=== PATIENT | female | born 1955 | race Two or more races ===

== ENCOUNTER → 2022-05-11 | Outpatient (CLI) | payer OTHER ==
[2022-05-11 11:55] LABS: Basophils # (auto) 0 10 ^3/uL (0-0.2); Basophils % (auto) 0.6 % (0.0-2.0); Eosinophils # (auto) 0.3 10 ^3/uL (0-0.8); Eosinophils % (auto) 3.3 % (0.0-7.0); Hematocrit 42.4 % (36.0-46.0); Hemoglobin 14.4 g/dL (12.2-16.2); Lymphocytes # (auto) 2.4 10 ^3/uL (0.4-5.4); Lymphocytes % (auto) 31.6 % (10.0-50.0); Mean Corpuscular Hemoglobin 31.8 pg (28.0-32.0); Mean Corpuscular Volume 93.5 fL (80.0-100.0); Monocytes # (auto) 0.6 10 ^3/uL (0-1.3); Neutrophils # (auto) 4.4 10 ^3/uL (1.6-8.6); Neutrophils % (auto) 56.5 % (37.0-80.0); Red Blood Cells 4.54 10^6/uL (4.0-5.20); White Blood Cell 7.7 10^3/uL (4.4-10.8)
[2022-05-11 12:44] LABS: Albumin 3.8 g/dL (3.4-5.0); Calcium 11.1 mg/dL (8.5-10.1); Potassium 3.8 mmol/L (3.5-5.1)
[2022-05-11 12:51] LABS: BUN/Creatinine Ratio 27.5 (10.0-20.0); Bilirubin, Total 0.8 mg/dL (0.2-1.0); Total Protein 7.5 g/dL (6.4-8.2)
[2022-05-11 12:52] LABS: Urine Bacteria NONE SEEN /hpf (None Seen); Urine Blood Negative /uL (Negative); Urine Specific Gravity 1.011 (1.001-1.035); Urine WBC <1 /hpf (0 - 5)
== END | disposition home or self-care (01) ==
LOC: LAB 11:38
PROVIDERS: ATTEND Internal Medicine
DX: Z12.11 Encounter for screening for malignant neoplasm of colon (principal); E78.00 Pure hypercholesterolemia, unspecified; R68.89 Other general symptoms and signs
CPT/HCPCS: 36415; 80053; 80061; 81001; 85025

== ENCOUNTER → 2022-06-05 | Outpatient (CLI) | payer OTHER ==
[2022-06-05 10:59] LABS: Basophils # (auto) 0 10 ^3/uL (0-0.2); Basophils % (auto) 0.4 % (0.0-2.0); Eosinophils # (auto) 0.3 10 ^3/uL (0-0.8); Eosinophils % (auto) 3.2 % (0.0-7.0); Hematocrit 44.1 % (36.0-46.0); Hemoglobin 14.9 g/dL (12.2-16.2); Lymphocytes # (auto) 2.2 10 ^3/uL (0.4-5.4); Lymphocytes % (auto) 27.3 % (10.0-50.0); Mean Corpuscular Hemoglobin 31.8 pg (28.0-32.0); Mean Corpuscular Hgb Conc. 33.7 g/dL (32.0-36.0); Mean Corpuscular Volume 94.2 fL (80.0-100.0); Monocytes # (auto) 0.7 10 ^3/uL (0-1.3); Monocytes % (auto) 8.2 % (0.0-12.0); Neutrophils # (auto) 4.9 10 ^3/uL (1.6-8.6); Neutrophils % (auto) 60.9 % (37.0-80.0); Nucleated Red Blood Cells % 0.1 %; Red Blood Cells 4.69 10^6/uL (4.0-5.20); Red Cell Distribution Width 13.4 % (11.8-14.3); White Blood Cell 8.1 10^3/uL (4.4-10.8)
[2022-06-05 11:36] LABS: Potassium 3.7 mmol/L (3.5-5.1)
[2022-06-05 11:50] LABS: Albumin 3.8 g/dL (3.4-5.0); BUN/Creatinine Ratio 23.1 (10.0-20.0); Bilirubin, Total 0.6 mg/dL (0.2-1.0); CRP High Sensitivity 0.07 mg/dL (< 0.3); Calcium 11.6 mg/dL (8.5-10.1); Total Protein 7.6 g/dL (6.4-8.2)
== END | disposition home or self-care (01) ==
LOC: LAB 09:59
PROVIDERS: ATTEND Internal Medicine
DX: L40.52 Psoriatic arthritis mutilans (principal); E78.00 Pure hypercholesterolemia, unspecified; R68.89 Other general symptoms and signs
CPT/HCPCS: 36415; 80053; 80061; 85025; 85652; 86141; 86200; 86431; 86812

== ENCOUNTER → 2023-04-08 | Outpatient (CLI) | payer OTHER ==
[2023-04-08 11:38] LABS: Basophils # (auto) 0 10 ^3/uL (0-0.2); Basophils % (auto) 0.6 % (0.0-2.0); Eosinophils # (auto) 0.2 10 ^3/uL (0-0.8); Eosinophils % (auto) 3.4 % (0.0-7.0); Hematocrit 40.9 % (36.0-46.0); Hemoglobin 13.9 g/dL (12.2-16.2); Lymphocytes # (auto) 1.9 10 ^3/uL (0.4-5.4); Lymphocytes % (auto) 26.7 % (10.0-50.0); Mean Corpuscular Hemoglobin 32.4 pg (28.0-32.0); Mean Corpuscular Volume 95.5 fL (80.0-100.0); Monocytes # (auto) 0.6 10 ^3/uL (0-1.3); Monocytes % (auto) 8.3 % (0.0-12.0); Neutrophils # (auto) 4.3 10 ^3/uL (1.6-8.6); Red Blood Cells 4.28 10^6/uL (4.0-5.20); Red Cell Distribution Width 12.7 % (11.8-14.3); White Blood Cell 7.1 10^3/uL (4.4-10.8)
[2023-04-08 12:27] LABS: Alanine Aminotransferase 18 U/L (7-40); Albumin 4.5 g/dL (3.2-4.8); Alkaline Phosphatase 73 U/L (46-116); Anion Gap 5 (5-15); Aspartate Aminotransferase 16 U/L (13-40); BUN/Creatinine Ratio 18.9 (10.0-20.0); Blood Urea Nitrogen 17 mg/dL (9-23); Calcium 11.5 mg/dL (8.5-10.1); Carbon Dioxide 31 mmol/L (20-30); Chloride 107 mmol/L (98-107); Cholesterol 185 mg/dL (< 200); Glucose 81 mg/dL (74-106); HDL Cholesterol 67 mg/dL (40-59); Potassium 3.7 mmol/L (3.5-5.1); Sodium 143 mmol/L (136-145); Triglycerides 96 mg/dL (< 150)
[2023-04-08 12:28] LABS: Bilirubin, Total 0.9 mg/dL (0.2-1.0); Total Protein 6.7 g/dL (5.7-8.2)
[2023-04-08 12:33] LABS: LDL Cholesterol 100 mg/dL (< 100)
== END | disposition home or self-care (01) ==
LOC: LAB 11:16
PROVIDERS: ATTEND Internal Medicine
DX: E78.00 Pure hypercholesterolemia, unspecified (principal); R68.89 Other general symptoms and signs
CPT/HCPCS: 36415; 80053; 80061; 85025

== ENCOUNTER 2024-06-30 02:10 | Emergency (ER) | payer OTHER ==
[~2024-06-30] VITALS: Ht 152.4 cm; Wt 75.0 kg
[2024-06-30 04:06] LABS: Basophils # (auto) 0 10 ^3/uL (0-0.2); Basophils % (auto) 0.3 % (0.0-2.0); Eosinophils # (auto) 0.1 10 ^3/uL (0-0.8); Eosinophils % (auto) 0.7 % (0.0-7.0); Hematocrit 42.3 % (36.0-46.0); Hemoglobin 14.5 g/dL (12.2-16.2); Lymphocytes # (auto) 1.3 10 ^3/uL (0.4-5.4); Lymphocytes % (auto) 13.2 % (10.0-50.0); Mean Corpuscular Hemoglobin 32.6 pg (28.0-32.0); Mean Corpuscular Hgb Conc. 34.3 g/dL (32.0-36.0); Monocytes # (auto) 0.6 10 ^3/uL (0-1.3); Monocytes % (auto) 5.9 % (0.0-12.0); Neutrophils # (auto) 7.9 10 ^3/uL (1.6-8.6); Neutrophils % (auto) 79.9 % (37.0-80.0); Platelet Count (auto) 169 10^3/uL (140-450); Red Blood Cells 4.46 10^6/uL (4.0-5.20); Red Cell Distribution Width 13.4 % (11.8-14.3); White Blood Cell 9.8 10^3/uL (4.4-10.8)
[2024-06-30 04:17] LABS: Alanine Aminotransferase 18 U/L (7-40); Alkaline Phosphatase 110 U/L (46-116); Carbon Dioxide 26 mmol/L (20-31); Chloride 102 mmol/L (98-107)
[2024-06-30 04:18] LABS: Albumin 4.8 g/dL (3.2-4.8); Anion Gap 12 (5-15); Aspartate Aminotransferase 15 U/L (13-40); BUN/Creatinine Ratio 18.2 (10.0-20.0); Bilirubin, Total 0.6 mg/dL (0.2-1.0); Blood Urea Nitrogen 18 mg/dL (9-23); Calcium 11.2 mg/dL (8.7-10.4); Glucose 186 mg/dL (74-106); Potassium 3.1 mmol/L (3.5-5.1); Sodium 140 mmol/L (136-145); Total Protein 7.4 g/dL (5.7-8.2)
[2024-06-30 04:45] VITALS: PULSE 98; RESP 16; O2SAT 95
[2024-06-30] MEDS: SODIUM CHLORIDE 0.9% 1,000 ML IV ONE (05:09)
[2024-06-30] MEDS: ONDANSETRON HCL 4 MG/2 ML VIAL IV ONE (05:09)
[2024-06-30] MEDS: MECLIZINE HCL 25 MG TAB PO ONE (05:09)
--- NOTE | 2024-06-30 06:51 | ED.PDOC ---
HPI (NEURO) HPI Comments 69 y/o F, BIBA, with PMHx of HTN presents to the ED for CC of dizziness. EMS reports patient is coming from home where she complains of dizziness with an associated headache since, last night (06/29/24). Patient states, that symptoms of dizziness prompted her to check her blood pressure; hypertensive blood pressure reading at 160/100mmHg. Patient endorses, doubling up on her Amlodipine medication in hope to subside symptoms with no relief. Patient denies nausea, vomiting, blurred vision, or uncoordination. No other symptoms or modifying factors present at this time. Chief Complaint: Dizziness Time Seen by MD: 06:15 Reviewed Notes: Nurses Notes, Clay Washer Notes, Medications, Allergies Information Source: Patient Mode of Arrival: EMS Severity: Moderate Dizziness/Weakness Severity: Does not affect activitie Headache Severity: Moderate Timing: Hours Duration: Since onset Prehospital treatment: None Headache Location: Generalized Onset: With light exertion Circumstances: Spontaneous During: Awake After: Headache History of: None Associated Signs and Symptoms: Headache Past Medical History PAST MEDICAL HISTORY: HTN Past Medical History (Other): osteoporosis Surgical History: Unknown [employer] History: Unknown Family History Family History: Unknown Social History Smoker: Non-Smoker Alcohol: Denies ETOH Use Drugs: Denies Drug Use Lives In: Home Constitutional: denies: chills, diaphoresis, fatigue, fever, malaise, sweats, weakness, others EENTM: denies: blurred vision, double vision, ear bleeding, ear discharge, ear drainage, ear pain, ear ringing, eye pain, eye redness, hearing loss, mouth pain, mouth swelling, nasal discharge, nose bleeding, nose congestion, nose pain, photophobia, tearing, throat pain, throat swelling, voice changes, others Respiratory: denies: cough, hemoptysis, orthopnea, SOB at rest, shortness of breath, SOB with excertion, stridor, wheezing, others Cardiovascular: denies: chest pain, dizzy spells, diaphoresis, Dyspnea on exertion, edema, irregular heart beat, left arm pain, lightheadedness, p alpitations, PND, syncope, others Gastrointestinal: denies: abdomen distended, abdominal pain, blood streaked bowels, constipated, diarrhea, dysphagia, difficulty swallowing, hematemesis, melena, nausea, poor appetite, poor fluid intake, rectal bleeding, rectal pain, vomiting, others Genitourinary: denies: abnormal vagina bleeding, burning, dyspareunia, dysuria, flank pain, frequency, hematuria, incontinence, pain, , vagina discharge, urgency, others Neurological: reports: dizziness, headache; denies: fainting, left sided numbness, left sided weakness, numbness, paresthesia, pre-existing deficit, right sided numbness, right sided weakness, seizure, speech problems, tingling, tremors, weakness, others Musculoskeletal: denies: back pain, gout, joint pain, joint swelling, muscle pain, muscle stiffness, neck pain, others Integumetry: denies: bruises, change in color, change in hair/nails, dryness, laceration, lesions, lumps, rash, wounds, others Allergic/Immunocompromised: denies: Difficulty Healing, Frequent Infections, Hives, Itching, others Hematologic/Lymphatic: denies: anemia, blood clots, easy bleeding, easy bruising, swollen glands, others Endocrine: denies: excessive hunger, excessive sweating, excessive thirst, excessive urination, flushing, intolerance to cold, intolerance to heat, u nexplained weight gain, unexplained weight loss, others Psychiatric: denies: anxiety, bipolar disorder, depression, hopeless, panic disorder, schizophrenia, sleepless, suicidal, others All Other Systems: Reviewed and Negative Physical Exam General Appearance: Moderate Distress HEENT: Normal ENT Inspection, Pharynx Normal, TMs Normal Neck: Full Range of Motion, Non-Tender, Normal, Normal Inspection Respiratory: Chest Non-Tender, Lungs Clear, No Accessory Muscle Use, No Respiratory Distress, Normal Breath Sounds Cardiovascular: No Edema, No JVD, No Murmur, No Gallop, Normal Peripheral Pulses, Regular Rate/Rhythm Breast Exam: Deferred Gastrointestinal: No Organomegaly, Non Tender, No Pulsatile Mass, Normal Bowel Sounds, Soft Genitalia: Deferred Pelvic: Deferred Rectal: Deferred Extremities: No calf tenderness, Normal capillary refill, Normal inspection, Normal range of motion, Non-tender, No pedal edema Musculoskeletal : Apperance: Normal Neurologic: Alert, associate web developer II-XII nml as Tested, No Motor Deficits, Normal Affect, Normal Mood, No Sensory Deficits Cerebellar Function: Normal Reflexes: Normal Skin: Dry, Normal Color, Warm Peripheral Pulses: 3+ Radial (R), 3+ Radial (L) Lymphatic: No Adenopathy EKG EKG : Cardiac Rhythm: NSR Was a procedure done? Was a procedure done?: No Differential Diagnosis (SZ) Seizure: Psychogenic Seizure, Closed Head Injury, CVA/TIA General Weakness: Dehydration, Electrolyte imbalance Headache: Cluster, Migraine, Sinusitis X-Ray, Labs, Meds, VS Vital Signs Date Time Temp Pulse Resp B/P (MAP) Pulse Ox O2 Delivery O2 Flow Rate FiO2 06/30/24 07:36 97.9 90 16 140/71 (94) 94 97.9 06/30/24 04:45 98 16 95 Room Air* 0 21 06/30/24 04:45 98.8 98 16 127/54 (78) 95 98.8 06/30/24 02:10 97.9 76 16 146/78 (100) 98 97.9 Lab Test 06/30/24 04:49 06/30/24 03:43 Range/Units Troponin I High Sensitivity 6 6 </=34 ng/L White Blood Count 9.8 4.4-10.8 10^3/uL Red Blood Count 4.46 4.0-5.20 10^6/uL Hemoglobin 14.5 12.2-16.2 g/dL Hematocrit 42.3 36.0-46.0 % Mean Corpuscular Volume 95.0 80.0-100.0 fL Mean Corpuscular Hemoglobin 32.6 H 28.0-32.0 pg Mean Corpuscular Hemoglobin Concent 34.3 32.0-36.0 g/dL Red Cell Distribution Width 13.4 11.8-14.3 % Platelet Count 169 140-450 10^3/uL Mean Platelet Volume 10.2 6.9-10.8 fL Neutrophils (%) (Auto) 79.9 37.0-80.0 % Lymphocytes (%) (Auto) 13.2 10.0-50.0 % Monocytes (%) (Auto) 5.9 0.0-12.0 % Eosinophils (%) (Auto) 0.7 0.0-7.0 % Basophils (%) (Auto) 0.3 0.0-2.0 % Neutrophils # (Auto) 7.9 1.6-8.6 10 ^3/uL Lymphocytes # (Auto) 1.3 0.4-5.4 10 ^3/uL Monocytes # (Auto) 0.6 0-1.3 10 ^3/uL Eosinophils # (Auto) 0.1 0-0.8 10 ^3/uL Basophils # (Auto) 0 0-0.2 10 ^3/uL Nucleated Red Blood Cells 0.0 % Sodium Level 140 136-145 mmol/L Potassium Level 3.1 L 3.5-5.1 mmol/L Chloride Level 102 98-107 mmol/L Carbon Dioxide Level 26 20-31 mmol/L Anion Gap 12 5-15 Blood Urea Nitrogen 18 9-23 mg/dL Creatinine 0.99 0.550-1.02 mg/dL Glomerular Filtration Rate Calc 61 >90 mL/min BUN/Creatinine Ratio 18.2 10.0-20.0 Serum Glucose 186 H 74-106 mg/dL Calcium Level 11.2 H 8.7-10.4 mg/dL Total Bilirubin 0.6 0.2-1.0 mg/dL Aspartate Amino Transferase (AST) 15 13-40 U/L Alanine Aminotransferase (ALT) 18 7-40 U/L Alkaline Phosphatase 110 46-116 U/L B-Type Natriuretic Peptide 55.57 0-100 pg/mL Total Protein 7.4 5.7-8.2 g/dL Albumin 4.8 3.2-4.8 g/dL Current Medications Medications (Trade) Dose Ordered Sig/Amy Route Start Time Stop Time Status Last Admin Sodium Chloride 1,000 ml @ 1,000 mls/hr Q1H ONCE IV 06/30/24 03:30 06/30/24 04:29 DC 06/30/24 05:09 Meclizine HCl (Antivert Tablet) 25 mg ONCE ONCE PO 06/30/24 03:30 06/30/24 03:31 DC 06/30/24 05:09 Ondansetron HCl (Zofran) 4 mg ONCE ONCE IV 06/30/24 05:00 06/30/24 05:01 DC 06/30/24 05:[address] [address] Ph: [phone] DIAGNOSTIC IMAGING Diagnostic Imaging Report : [id number] Signed PATIENT: BRENDAN NETTLES CACCT: [id number] UNIT: [id number] : 1955 LOC: ER ROOM / BED: / AGE / SEX: 69 / F ADM STATUS: REG ER SERVICE ORDERING PHYSICIAN: LARA FAUSTIN MD PROCEDURE(s): HWOCT - HEAD WITHOUT CONTRAST REASON: dizzy ORDER NUMBER(s): [id number], ACCESSION NUMBER(s): [id number] CLINICAL INFORMATION: Dizziness. TECHNIQUE: Axial imaging was obtained through the brain without contrast. Coronal and sagittal reformatted images were obtained, reviewed, and stored. Images were reviewed in brain and bone windows. All CT scans at this medical facility are performed using dose modulation techniques as appropriate to a performed exam including the following: Automated exposure control was utilized; adjustment of the MA and/or KV according to patient size; and use of iterative reconstruction technique. CTDIvol = 48.4 mGy DLP = 875.89 mGy-cm COMPARISON: None FINDINGS: There is no acute intracranial hemorrhage. No mass effect or midline shift. Scattered areas of hypoattenuation are seen in the periventricular and subcortical white matter, which are nonspecific but most likely sequelae of small vessel ischemic disease. Lucencies in the left basal ganglia, likely chronic lacunar infarcts. The ventricles and sulci are within normal limits in size for age. Basal cisterns are patent. The calvarium is unremarkable. Paranasal sinuses and mastoid air cells are clear. IMPRESSION: 1. No CT evidence of acute intracranial abnormality. 2. Nonacute findings as described above. ATED BY: LORNE PAKRINSON DO DICTATED DATE/TIME: 06/30/24714 SIGNED BY: LORNE PARKINSON DO SIGNED DATE/TIME: 06/30/24714 CC: Patient alert. Complaining of dizziness. Blood sugar elevated. Was given meclizine. Was given Zofran. Establish intravenous access. Was given fluids. Ambulating without difficulty. Blood sugar controlled with fluids. Potassium was low. Was given potassium. Reviewed her history. CT of the head reviewed does not show any acute changes. Was given prescription of meclizine. Explained to the patient. Was told to follow up with her primary care physician. Was told to come back if there is any problem. Time of 1ST Reevaluation: 06:45 Reevaluation 1ST: Improved Patient Education/Counseling: Diagnosis, Treatment Family Education/Counseling: No Family Present Departure 1 Departure Time of Disposition: 07:06 Impression: Primary Impression: Hypokalemia Additional Impression: Autonomic disorder Disposition: 01 HOME / SELF CARE / HOMELESS Condition: Good e-Prescriptions Meclizine HCl (Meclizine 25) 25 Mg Tab 25 MG PO DAILY for 5 Days, #5 TAB Prov: LARA FAUSTIN MD 06/30/24 Discharged With: Self Critical Care Note Critical Care Time?: No Stability Stability form required: No Heart Score Heart Score: Heart Score Response (Comments) Value History Slightly Suspicious 0 EKG Normal 0 Age >65 2 Risk Factors 1 or 2 risk factors 1 Troponin Normal limit 0 Total 3 I personally scribed for LARA FAUSTIN MD ([email or web address]) on 06/30/24 at 06:51. Electronically submitted by Marleen Jones ([email or web address]). I personally scribed for LARA FAUSTIN MD ([email or web address]) on 06/30/24 at 07:37. Electronically submitted by Marleen Jones [email or web address]). LARA FAUSTIN MD June 30, 2024 06:51
[2024-06-30] MEDS ORDERED: MECL1TAB42 PO (07:06)
--- NOTE | 2024-06-30 07:18 | DVH ---
CLINICAL INFORMATION: Dizziness. TECHNIQUE: Axial imaging was obtained through the brain without contrast. Coronal and sagittal reform atted images were obtained, reviewed, and stored. Images were reviewed in brain and bone windows. Al l CT scans at this medical facility are performed using dose modulation techniques as appropriate to a performed exam including the following: Automated exposure control was utilized; adjustment of the MA and/or KV according to patient size; and use of iterative reconstruction technique. CTDIvol = 48.4 mGy DLP = 875.89 mGy-cm COMPARISON: None FINDINGS: There is no acute intracranial hemorrhage. No mass effect or midline shift. Scattered areas of hypoattenuation are seen in the periventricular and subcortical white matter, which are nonspecif ic but most likely sequelae of small vessel ischemic disease. Lucencies in the left basal ganglia, li sixto chronic lacunar infarcts. The ventricles and sulci are within normal limits in size for age. Bas al cisterns are patent. The calvarium is unremarkable. Paranasal sinuses and mastoid air cells are c lear. IMPRESSION: 1. No CT evidence of acute intracranial abnormality. 2. Nonacute findings as described above.
[2024-06-30 07:36] VITALS: BP 140/71; PULSE 90; RESP 16; TEMP 97.9; O2SAT 94
[2024-06-30] MEDS: POTASSIUM EFFERVESENT TAB 25 MEQ PO ONE (07:53)
== END 2024-06-30 08:17 | disposition home or self-care (01) ==
LOC: EDBD 02:10 → ER 02:10 → EDUNIT# 02:10 → ER 08:16
DX: E87.6 Hypokalemia (principal); G90.9 Disorder of the autonomic nervous system, unspecified; I10 Essential (primary) hypertension; M81.0 Age-related osteoporosis without current pathological fracture; Z79.899 Other long term (current) drug therapy
CPT/HCPCS: 36415; 70450; 80053; 83880; 84484; 85025; 96361; 96374; 99285; J2405; J7030; J8597